=== PATIENT | female | born 2005 | race Caucasian/White ===

== ENCOUNTER 2025-04-29 20:57 | Observation (INO) | payer BC ==
[2025-04-29 21:26] LABS: APPEARANCE,URINE CLEAR; GLUCOSE,URINE NEGATIVE (NEGATIVE); OCCULT BLOOD,URINE LARGE (NEGATIVE)
[2025-04-29 21:32] LABS: BASOPHILS ABSOLUTE AUTO 0.02 K/uL (0.00-0.30); BASOPHILS PERCENT AUTO 0.2 % (0.0-1.0); EOSINOPHILS ABSOLUTE AUTO 0.04 K/uL (0.00-0.70); EOSINOPHILS PERCENT AUTO 0.4 % (0.0-5.0); IMMATURE GRAN ABSOLUTE AUTO 0.03 K/uL (0.00-0.05); IMMATURE GRAN PERCENT AUTO 0.3 % (0.0-0.4); LYMPHOCYTES ABSOLUTE AUTO 1.88 K/uL (2.00-8.80); LYMPHOCYTES PERCENT AUTO 16.6 % (50.0-65.0); MEAN PLATELET VOLUME 9.6 fL (9.4-12.3); MONOCYTES ABSOLUTE AUTO 0.63 K/uL (0.10-1.40); MONOCYTES PERCENT AUTO 5.6 % (2.0-10.0); NEUTROPHILS ABSOLUTE AUTO 8.74 K/uL (1.50-8.50); NEUTROPHILS PERCENT AUTO 76.9 % (35.0-45.0); NRBC ABSOLUTE 0.00 K/uL (0.00-0.03); NRBC PERCENT 0.0 /100WBC (0.0-0.2); PLATELET COUNT,PLT 264 K/uL (150-400); RED BLOOD CELL COUNT 3.91 M/uL (4.10-5.30); WHITE BLOOD CELL COUNT,WBC 11.34 K/uL (4.5-13.5)
[2025-04-29 21:41] LABS: EPITHELIAL CELLS,URINE RARE (NONE-FEW)
[2025-04-29] MEDS ORDERED: Sodium Chloride 0.9% 10 ML Syringe FLUSH PRN ×2 (22:16→22:17)
[2025-04-29] MEDS ORDERED: Sodium Chloride 0.9% 2.5 ML Syringe FLUSH PRN ×2 (22:16→22:17)
[2025-04-29 22:29] LABS: INR 1.06 (0.86-1.11); PTT,PARTIAL THROMBOPLSTIN TIME 23.8 SEC (23.9-30.7)
[2025-04-29] MEDS: Ondansetron 4 MG/2 ML SDV IVPUSH ONE (22:42)
[2025-04-29] MEDS ORDERED: fentaNYL 100 MCG/2 ML SDV ONE (23:40)
[2025-04-29] MEDS ORDERED: Propofol 200 MG/20 ML SDV ONE (23:40)
[2025-04-29] MEDS ORDERED: Midazolam 1 MG/ML 2 ML SDV ONE (23:41)
[2025-04-29] MEDS ORDERED: dexmedeTOMIDine HCl 200 MCG/2 ML SDV ONE (23:41)
[2025-04-29] MEDS ORDERED: Ropivacaine 0.5% 5 MG/ML 30 ML SDV ONE (23:43)
[2025-04-30] MEDS: Ondansetron 4 MG/2 ML SDV IVPUSH ONE (00:01)
[2025-04-30] MEDS ORDERED: ePHEDrine 50 MG/ML SDV ONE (00:51)
[2025-04-30] MEDS ORDERED: Dexamethasone 4 MG/ML 5 ML MDV ONE (01:00)
[2025-04-30] MEDS ORDERED: Ketorolac 30 MG/ML SDV ONE (01:40)
[2025-04-30] MEDS ORDERED: Ondansetron 4 MG/2 ML SDV ONE (01:40)
[2025-04-30] MEDS ORDERED: Promethazine 25 MG/ML SDV IM PRN (02:32)
[2025-04-30] MEDS ORDERED: Naloxone 0.4 MG/ML SDV IVPUSH PRN (02:32)
[2025-04-30] MEDS ORDERED: Aluminum Hydroxide/Magnesium Hydroxide/Simethicone Susp 30 ML Cup PO PRN (02:32)
[2025-04-30] MEDS ORDERED: Ondansetron 4 MG/2 ML SDV IVPUSH PRN (02:32)
[2025-04-30] MEDS: Ketorolac 30 MG/ML SDV IVPUSH ONE (03:22)
[2025-04-30 05:50] LABS: BASOPHILS ABSOLUTE AUTO 0.01 K/uL (0.00-0.30); BASOPHILS PERCENT AUTO 0.1 % (0.0-1.0); EOSINOPHILS ABSOLUTE AUTO 0.00 K/uL (0.00-0.70); EOSINOPHILS PERCENT AUTO 0.0 % (0.0-5.0); IMMATURE GRAN ABSOLUTE AUTO 0.04 K/uL (0.00-0.05); IMMATURE GRAN PERCENT AUTO 0.4 % (0.0-0.4); LYMPHOCYTES ABSOLUTE AUTO 0.72 K/uL (2.00-8.80); LYMPHOCYTES PERCENT AUTO 7.2 % (50.0-65.0); MEAN PLATELET VOLUME 10.2 fL (9.4-12.3); MONOCYTES ABSOLUTE AUTO 0.16 K/uL (0.10-1.40); MONOCYTES PERCENT AUTO 1.6 % (2.0-10.0); NEUTROPHILS ABSOLUTE AUTO 9.07 K/uL (1.50-8.50); NEUTROPHILS PERCENT AUTO 90.7 % (35.0-45.0); NRBC ABSOLUTE 0.00 K/uL (0.00-0.03); NRBC PERCENT 0.0 /100WBC (0.0-0.2); PLATELET COUNT,PLT 212 K/uL (150-400); RED BLOOD CELL COUNT 3.30 M/uL (4.10-5.30); WHITE BLOOD CELL COUNT,WBC 10.00 K/uL (4.5-13.5)
[2025-04-30 06:22] LABS: A/G RATIO 1.1 (0.9-1.6); ALANINE AMINOTRANSFERASE,ALT 22.0 IU/L (14-63); ASPARTATE AMNIOTRANSFERASE,AST 15.0 IU/L (15-37); BILIRUBIN TOTAL 0.5 mg/dL (0.2-1.0); BLOOD UREA NITROGEN,BUN 6.0 mg/dL (7.0-18.0); CARBON DIOXIDE,CO2 22.3 mmol/L (21.0-32.0); CHLORIDE,CL 104.0 mmol/L (98-107); CREATININE 0.7 mg/dL (0.6-1.0); EST CRCL DRUG DOSING (CG) 139.79 mL/min; GLUCOSE RANDOM 129.0 mg/dL (74-106); POTASSIUM,K 3.9 mmol/L (3.5-5.1); PROTEIN TOTAL,TP 6.1 g/dL (6.4-8.2); SODIUM,NA 137.0 mmol/L (136-145)
[2025-04-30 06:36] LABS: ESTIMATED GFR 128.0 mL/min (>60)
[2025-04-30] MEDS: Ketorolac 30 MG/ML SDV IVPUSH SCH (08:01)
[2025-04-30] MEDS: Sodium Ferric Gluconate Cmplex 125 MG in Sodium Chloride 0.9% 100 ML IV SCH (08:49)
== END 2025-04-30 12:24 | disposition home or self-care (01) ==
LOC: MW.ED 20:57 → MW.MS 22:48 → MW.SDS 22:48 → MW.MS 04-30 02:33
PROVIDERS: ADMIT Obstetrics & Gynecology; ATTEND Obstetrics & Gynecology
DX: O00.102 Left tubal pregnancy without intrauterine pregnancy (principal)
CPT/HCPCS: 36415; 59151; 76817; 80053; 81001; 81025; 84702; 85014; 85018; 85025; 85610; 85730; 86850; 86900; 86901; 96361; 96365; 96375; 99285; A9270; J0665; J0690; J1100; J1171; J1885; J2003; J2250; J2270; J2405; J2704; J2795; J2916; J3010; J7030; J7999; 00840; 64488; J2371; J3490